=== PATIENT | female | born 1945 | race Caucasian/White ===

== ENCOUNTER 2020-06-16 15:10 | Emergency (ER) | payer MEDICARE, OTHER, SELFPAY ==
[2020-06-16 15:30] VITALS: BP 137/68; PULSE 92; RESP 15; TEMP 36.8; O2SAT 98; BMI 25.2
--- NOTE | 2020-06-16 15:41 | DI.RAD.S_ITS ---
PROCEDURE: XR ACUTE ABDOMEN SERIES INDICATIONS: constipation TECHNIQUE: One view chest and two views of the abdomen were acquired. COMPARISON: None. FINDINGS: Surgical changes and devices: Status post right hip arthroplasty. child monitor device projects over the left hilum.. Chest: Numerous bilateral lung nodules highly suspicious for metastatic disease. Heart size is normal. No pleural effusions. No pneumoperitoneum. Abdomen: Bowel gas pattern is nonspecific. Moderate amount of stool noted throughout the colon. No suspicious calcifications. Visualized solid organ contours appear normal. Bones: No suspicious bony lesions. Spine degenerative disc disease and facet arthropathy. IMPRESSION: 1. Numerous bilateral lung nodules highly suspicious for metastatic disease. 2. Moderate fecal loading throughout the colon compatible port history of constipation. 3. Bowel gas pattern is nonspecific without definite evidence of obstruction. Dictated by: Nadine Hendrix MD, PhD on 06/16/2020 at 16:08 Approved by: Nadine Hendrix MD, PhD on 06/16/2020 at 16:10
[2020-06-16] MEDS: FLEETS ENEMA 1 EACH PR (17:41)
[2020-06-16] MEDS: LIDOCAINE 2% (UROJET) 5 ML GEL TOP (17:52)
--- NOTE | 2020-06-16 18:00 | PC.NURSE ---
Patient up to bedside commode after holding enema for approx 10 min. Passed fluid but no significant stool passing
--- NOTE | 2020-06-16 18:02 | ED_ITS ---
HPI - Abdominal Pain General Chief Complaint: Abdominal Pain Stated Complaint: constipation x 3-4 days Time Seen by Provider: 06/16/20 17:59 Source: patient Mode of arrival: Ambulatory Limitations: no limitations History of Present Illness HPI narrative: 74-year-old female nonsmoker with relatively new diagnosis of lung cancer presents with a chief complaint of 3-4 days of decreased bowel movements and now crampy, generalized abdominal pain. She has tried some Fleet suppositories at home without much luck. She talked with her oncology office who encouraged her to present to the emergency department for evaluation. She states her discomfort is crampy in nature and moderate in intensity. She states that it is largely in her lower abdomen. Her symptoms are made worse with motion and there is some improvement with rest. She has been nauseated but denies any vomiting. She does state that she has had bit of a decreased appetite relatively recently and has been less active than normal. Additionally, she has taken a few doses of cough syrup with codeine. MD complaint: abdominal pain Onset (ago): day(s) Pain Consistency: colicky Location: diffuse Severity: moderate Quality: cramping Relieving factors: rest Exacerbating factors: movement Associated symptoms: nausea Related Data Allergies Allergy/AdvReac Type Severity Reaction Status Date / Time prochlorperazine Allergy Verified 06/16/20 15:35 [From Compazine] Review of Systems Constitutional Constitutional: Denies chills, Denies fatigue, Denies fever(s), Denies frequent falls, Denies lethargy and Denies weakness Eyes Eyes: Denies change in vision, Denies eye discharge, Denies irritation and Denies loss of vision ENT Ears, Nose, Mouth, and Throat: Denies change in voice, Denies dizziness, Denies neck pain, Denies sore throat and Denies throat swelling Cardiovascular Cardiovascular: Denies chest pain, Denies irregular heart rhythm, Denies lightheadedness, Denies palpitations, Denies dyspnea, Denies dyspnea on exertion and Denies orthopnea Respiratory Respiratory: Denies cough, Denies dyspnea, Denies dyspnea on exertion and Denies wheezing Gastrointestinal Gastrointestinal: Reports abdominal pain, Denies change in bowel habits, Reports constipation, Denies diarrhea, Reports nausea and Denies vomiting Musculoskeletal Musculoskeletal: Denies neck pain and Denies numbness Integumentary/Breasts Skin/Breast: Denies pruritus, Denies erythema, Denies rash and Denies wounds Neurologic Neurologic: Denies behavioral changes, Denies confusion, Denies dizziness, Denies frequent falls, Denies loss of vision, Denies numbness and Denies weakness Psychiatric Psychiatric: Denies anxiety, Denies behavioral changes, Denies confusion, Denies depression, Denies homicidal ideation and Denies suicidal ideation Endocrine Endocrine: Denies fatigue, Denies flushing and Denies palpitations Hematologic/Lymphatic Hematologic/Lymphatic: Denies easy bruising Allergic/Immunologic Allergic/Immunologic: Denies urticaria, Denies throat swelling and Denies wheezing Patient History Social History Smoking Status: Unknown if ever smoked Smoking Status: Unknown if ever smoked alcohol intake frequency: holidays/special occasions only Substance Use Type: does not use Exam Narrative Exam Narrative: GENERAL: [74] year old patient appears stated age. Well- nourished, well-developed patient, in mild distress. HEAD: Atraumatic. Normocephalic. EYES: Pupils equal round and reactive. Extraocular motions intact. No scleral icterus. No injection or drainage. ENT: Nose without bleeding, purulent drainage. Throat without erythema, tonsillar hypertrophy or exudate. Airway patent. NECK: Trachea midline. Non tender CARDIOVASCULAR: Regular rate and rhythm without murmurs, gallops, or rubs. RESPIRATORY: Clear to auscultation. Breath sounds equal bilaterally. No wheezes, rales, or rhonchi. GASTROINTESTINAL: Abdomen soft, mild generalized tenderness, nondistended. Decreased bowel sounds in all 4 quadrant EXTREMITIES: No edema or joint tenderness. BACK: Nontender without deformity or crepitance. No flank tenderness. NEURO: AOx3. SKIN: No rash or erythema of visible areas Initial Vital Signs Initial Vital Signs: Vital Signs Temperature 98.3 F 06/16/20 15:30 Pulse Rate 92 H 06/16/20 15:30 Respiratory Rate 06/16/20 15:30 Blood Pressure 137/68 06/16/20 15:30 Pulse Oximetry 98 06/16/20 15:30 Course Course Course Narrative: Patient had been given an enema and had little resolution initially but then produced 3 increasingly large stools and developed a near complete improvement in symptoms. At that point rectal exam demonstrates no stool in the rectal vault, increased bowel sounds in all 4 quadrants. Extensive discussion at the bedside with the patient regarding the likely contributing factors to her constipation including change in appetite, use of opioids, decreased activity. She has been given extensive return precautions and had her questions answered to her apparent satisfaction. Orders Ordered: ED Orders 06/16/20 15:41 XR acute abdomen series Stat Discontinued Medications Lidocaine HCl (Lidocaine 2% (Urojet) 5 Ml Gel) 5 ml TOP NOW ONE Stop: 06/16/20 17:49 Last Admin: 06/16/20 17:52 Dose: 5 ml Documented by: BENY Sodium Biphosphate/Sodium Phosphate (Fleets Enema) 1 each LA NOW ONE Stop: 06/16/20 17:16 Last Admin: 06/16/20 17:41 Dose: 1 each Documented by: BENY Vital Signs Vital signs: Vital Signs - 8 hr 06/16/20 19:48 Pulse Rate 94 H Blood Pressure 123/75 Pulse Oximetry 95 Discharge Plan Departure Patient Disposition: Home Clinical Impression: Constipation Qualifiers: Constipation type: unspecified constipation type Qualified Code(s): K59.00 - Constipation, unspecified Instructions: DI for Constipation Activity Restrictions/Additional Instructions: *You have been diagnosed with [ abdominal pain due to constipation ] *What to do: *Take over the counter medications as directed: 1. Metamucil - is a bulk forming laxative and adds fiber 2. Colace - softens your stool 3. Dulcolax suppository - stimulates your bowels *Follow up with your primary care provider in 2-3 days, call for appointment *Return to ER if you should have any new, worsening or concerning symptoms *Drink plenty of water and eat foods high in fiber *Stay as active as you can as this helps move your bowels as well
--- NOTE | 2020-06-16 18:27 | PC.NURSE ---
Patient reporting pressure to push out stool, unable to get it out. Counter pressure and manual dis impaction attempted. Stool high in rectum. Small amount of liquid stool passed.
[2020-06-16 19:48] VITALS: BP 123/75; PULSE 94; O2SAT 95
== END 2020-06-16 19:49 | disposition home or self-care (01) ==
PROVIDERS: Emergency Provider Emergency Medicine
DX: K59.00 Constipation, unspecified (principal); R11.0 Nausea; R10.84 Generalized abdominal pain
CPT/HCPCS: 74022; 99283